=== PATIENT | male | born 1985 | race Hispanic/Latino ===

== ENCOUNTER 2022-09-14 13:00 | Emergency (ER) | payer SELFPAY ==
[~2022-09-14] VITALS: Ht 177.8 cm; Wt 86.2 kg
[2022-09-14] MEDS ORDERED: DIPHTH/TETANUS/ACEL. PERTUSSIS 0.5 ML SYR IM ONE (13:15)
[2022-09-14] MEDS ORDERED: LIDOCAINE HCL 1% LOCAL INJ 20 ML VIAL ONE (13:44)
[2022-09-14] MEDS ORDERED: BACITRACIN ZINC 0.9GM TP ONE (14:00)
== END 2022-09-14 14:26 | disposition home or self-care (01) ==
LOC: ER 13:10
DX: S61.011A Laceration without foreign body of right thumb without damage to nail, initial encounter (principal); W26.8XXA Contact with other sharp object(s), not elsewhere classified, initial encounter; Y92.89 Other specified places as the place of occurrence of the external cause
CPT/HCPCS: 12002; 73100; 90471; 90714; 99282; J2001